=== PATIENT | male | born 1990 | race Caucasian/White ===

== ENCOUNTER 2018-07-03 12:35 | Outpatient (CLI) | payer BC ==
--- NOTE | 2018-07-03 14:58 | ULT ---
ULTRASOUND RETROPERITONEUM COMPLETE: (RENAL) HISTORY: 27-year-old male with right groin and right flank pain with hematuria. FINDINGS: The right kidney measures 10.5 x 4.5 x 4.5 cm. The left kidney measures 12 x 7.5 x 7 cm. Both kidne ys have normal cortical thickness and normal cortical echogenicity. There is no hydronephrosis. Cur roxy images of the urinary bladder demonstrate no gross abnormality. Pre-void bladder volume is 265 mL. Post-void bladder volume is 5 mL. IMPRESSION: Normal jn [] POS: [facility]
== END 2018-07-03 12:36 | disposition home or self-care (01) ==
LOC: SCSULT 12:35
DX: R10.31 Right lower quadrant pain (principal); R31.0 Gross hematuria
CPT/HCPCS: 76770

== ENCOUNTER 2023-05-27 05:26 | Emergency (ER) | payer BC, OTHER ==
[2023-05-27 06:20] LABS: #Basophils 0.1 thou/uL (0.0-0.2); #Eosinphils 0.2 thou/uL (0.0-0.7); #Monocytes 0.6 thou/uL (0.11-0.59); #Neutrophils 3.1 thou/uL (1.40-6.50); %Eosinophils 2.2 % (0.0-10.0); %Lymphocytes 42.7 % (21.0-51.0); %Monocytes 8.8 % (0.0-10.0); %Neutrophils 45.2 % (42.0-75.0); Hematocrit 43.4 % (42.0-52.0); Hemoglobin 14.4 g/dL (14.0-18.0); Mean Corpuscular HGB CONC 33.2 g/dL (32.0-36.0); Mean Corpuscular Hemoglobin 28.8 pg (27.0-31.0); Mean Corpuscular Volume 86.8 fl (78.0-98.0); Mean Platelet Volume 9.6 fL (7.4-10.4); Platelet Count 258 10x3/uL (130-400); RBC Distribution Width 12.7 % (11.5-14.5); White Blood Cell (WBC) Count 6.9 10x3/uL (4.8-10.8)
[2023-05-27 06:43] LABS: ALT (SGPT) 44 U/L (8-55); AST (SGOT) 45 U/L (5-34); Albumin 4.2 g/dL (3.5-5.0); Alkaline Phosphatase 65 U/L (40-110); Anion Gap 12 mmol/L (10-20); BUN (Urea Nitrogen) 17 mg/dL (8.9-20.6); Bilirubin, Total 0.5 mg/dL (0.2-1.2); Calc. Creatinine Clearance 0 mL/min (70-130); Calcium 9.6 mg/dL (7.8-10.44); Carbon Dioxide 26 mmol/L (22-29); Chloride 104 mmol/L (98-107); Estimated GFR 88; Globulin 2.4 g/dL (2.4-3.5); Glucose 99 mg/dL (70-105); Protein, Total 6.6 g/dL (6.0-8.3); Sodium 138 mmol/L (136-145)
[2023-05-27 06:46] LABS: Troponin I Less than 0.010 ng/mL (< 0.028)
== END 2023-05-27 07:00 | disposition home or self-care (01) ==
LOC: ERS 05:26
DX: R07.9 Chest pain, unspecified (principal)
CPT/HCPCS: 36415; 80053; 84484; 85025; 85379; 93005